=== PATIENT | female | born 1950 | race Caucasian/White ===

== ENCOUNTER 2017-11-16 23:28 | Emergency (ER) | payer BC | END 2017-11-16 23:40 | disposition left against medical advice (07) | LOC: ER 23:28 | DX: Z53.20 Procedure and treatment not carried out because of patient's decision for unspecified reasons (principal) ==

== ENCOUNTER 2018-05-04 18:15 | Emergency (ER) | payer BC | END 2018-05-04 19:39 | disposition home or self-care (01) | LOC: EDSEX → ER 18:15 | DX: Z53.9 Procedure and treatment not carried out, unspecified reason (principal) ==

== ENCOUNTER 2018-05-04 19:30 | Emergency (ER) | payer MEDICARE, MEDICAID ==
[2018-05-04] MEDS: METHYLPREDNISOLONE PF 125MG/VIAL IM ONE (20:16)
[2018-05-04] MEDS: HYDROCODONE/APAP 10/325 TABLET PO ONE (20:19)
--- NOTE | 2018-05-04 20:21 | Emergency Department Record ---
History of Present Illness - General Chief Complaint: Back Pain/Injury Stated Complaint: BACK/LEG/HIP PAIN Time Seen by Provider: 05/04/18 20:05 Source: Patient Mode of Arrival: Ambulatory Limitations: No limitations - History of Present Illness Initial Comments: pt has pain for weeks in both hips, both legs, lower back. he had an mri 2 days ago that has not been transcribed yet. he is set up to go to an legal contracts specialist in a month, he has had bilateral dopplers with a nonocclusive clot in the r groin. he was started on eliquis. he had a bad rxn to a recent cta. MD Complaint: Back pain, Other Onset/Timin -: Week(s) Similar Symptoms Previously: No Place: Home Radiation: Buttocks, Left leg, Right leg Severity: Moderate Severity scale (1-10): 6 Quality: Aching Consistency: Constant Improves With: None Worsens With: Sitting upright Context: Unknown Associated Symptoms: Denies other symptoms - Related Data Allergies Allergy/AdvReac Type Severity Reaction Status Date / Time ibuprofen [From Advil] Allergy Intermediate GI upset, Verified 05/04/18 19:34 rash Iodinated Contrast- Oral and Allergy ANAPHYLAXIS Verified 05/04/18 19:34 IV Dye Penicillins Allergy unknown Verified 05/04/18 19:34 Travel Screening - Travel/Exposure Within Last 30 Days Have you traveled within the last 30 days?: No Review of Systems Reviewed: No additional complaints except as noted below Constitutional: Reports: As per HPI. Denies: Chills, Fever, Malaise, Night sweats, Weakness, Weight change Eyes: Reports: As per HPI. Denies: Eye discharge, Eye pain, Photophobia, Vision change ENT: Reports: As per HPI. Denies: Congestion, Dental pain, Ear pain, Epistaxis , Hearing loss, Throat pain Respiratory: Reports: As per HPI. Denies: Cough, Dyspnea, Hemoptysis, Stridor, Wheezes Cardiovascular: Reports: As per HPI. Denies: Arrhythmia, Chest pain, Dyspnea on exertion, Edema, Murmurs, Orthopnea, Palpitations, Paroxysmal nocturnal dyspnea, Rheumatic Fever, Syncope Endocrine: Reports: As per HPI. Denies: Fatigue, Heat or cold intolerance, Polydipsia, Polyuria Gastrointestinal: Reports: As per HPI. Denies: Abdominal pain, Constipation, Diarrhea, Hematemesis, Hematochezia, Melena, Nausea, Vomiting Genitourinary: Reports: As per HPI. Denies: Dysuria, Frequency, Hematuria, Incontinence, Retention, Testicular pain, Testicular mass, Urgency Musculoskeletal: Reports: As per HPI, Back pain. Denies: Arthralgia, Gout, Joint swelling, Myalgia, Neck pain Skin: Reports: As per HPI. Denies: Bruising, Change in color, Change in hair/ nails, Lesions, Pruritus, Rash Neurological: Reports: As per HPI. Denies: Abnormal gait, Confusion, Headache, Numbness, Paresthesias, Seizure, Tingling, Tremors, Vertigo, Weakness Psychiatric: Reports: As per HPI. Denies: Anxiety, Auditory hallucinations, Depression, Homicidal thoughts, Suicidal thoughts, Visual hallucinations Hematological/Lymphatic: Reports: As per HPI. Denies: Anemia, Blood Clots, Easy bleeding, Easy bruising, Swollen glands Past Medical History - SOCIAL HISTORY Smoking Status: Former smoker Alcohol Use: None Drug Use: None - RESPIRATORY Hx Respiratory Disorders: No - CARDIOVASCULAR Hx Cardio Disorders: Yes Hx Deep Vein Thrombosis: Yes Comment:: walking with cane r/t pain - NEURO Hx Neuro Disorders: No - GI Hx GI Disorders: Yes Hx Reflux: Yes - Hx Genitourinary Disorders: No - ENDOCRINE Hx Endocrine Disorders: No - MUSCULOSKELETAL Hx Musculoskeletal Disorders: Yes Hx Arthritis: Yes (back) Comment:: DJD - PSYCH Hx Psych Problems: No - HEMATOLOGY/ONCOLOGY Hx Hematology/Oncology Disorders: No Family Medical History Any Significant Family History?: Yes Hx HTN: Father, Mother Physical Exam - General General Appearance: Alert, Oriented x3, Cooperative, Mild distress - Head Head exam: Normal inspection - Eye Eye exam: Normal appearance, PERRL, EOMI Pupils: Normal accommodation - ENT ENT exam: Normal exam, Mucous membranes moist, Normal external ear exam, Normal orophraynx Ear exam: Normal external inspection. negative: External canal tenderness Nasal Exam: Normal inspection. negative: Discharge, Sinus tenderness Mouth exam: Normal external inspection, Tongue normal Teeth exam: Normal inspection. negative: Dental caries Throat exam: Normal inspection. negative: Tonsillar erythema, Tonsillar exudate - Neck Neck exam: Normal inspection, Full ROM. negative: Tenderness - Respiratory Respiratory exam: Normal lung sounds bilaterally. negative: Respiratory distress - Cardiovascular Cardiovascular Exam: Regular rate, Normal rhythm, Normal heart sounds - GI/Abdominal GI/Abdominal exam: Soft, Normal bowel sounds. negative: Tenderness - Rectal Rectal exam: Deferred - exam: Deferred - Extremities Extremities exam: Normal inspection, Full ROM, Normal capillary refill, Tenderness Image of Full Body: 1 - pain 2 - pain - Back Back exam: Reports: Normal inspection, Full ROM. Denies: Muscle spasm, Rash noted, Tenderness - Neurological Neurological exam: Alert, CN II-XII intact, Normal gait, Oriented X3 - Psychiatric Psychiatric exam: Normal affect, Normal mood - Skin Skin exam: Dry, Intact, Normal color, Warm Course Vital Signs 05/04/18 19:35 Temperature 97.9 F Pulse Rate 82 Respiratory 18 Rate Blood Pressure 154/92 Pulse Ox 99 Disposition Disposition: Discharge Clinical Impression: Piriformis syndrome of both sides Bursitis Qualifiers: Bursitis location: hip Hip bursitis location: unspecified Laterality: bilateral Qualified Code(s): M70.71 - Other bursitis of hip, right hip; M70.72 - Other bursitis of hip, left hip Disposition: Home, Self-Care Condition: (1) Good Instructions: Hip Bursitis (ED), Piriformis Syndrome (ED) Additional Instructions: follow up with family doctor and with orthopedic surgeon kendall. return sooner if worse. may take 1 1/2 norco every 8 hrs as needed Quality - Quality Measures Quality Measures: N/A - Blood Pressure Screening Does Patient Have Any of the Following: Active Dx of HTN Blood Pressure Classification: Hypertensive Reading Systolic Measurement: 154 Diastolic Measurement: 92 Screening for High Blood Pressure: Patient Exclusion, Hx of HTN [[id number]]
== END 2018-05-04 20:49 | disposition home or self-care (01) ==
LOC: ER 19:30 → MERGE 19:30 → ER 20:49
DX: G57.03 Lesion of sciatic nerve, bilateral lower limbs (principal); M54.5 Low back pain; M70.72 Other bursitis of hip, left hip; M70.71 Other bursitis of hip, right hip; Z87.891 Personal history of nicotine dependence; Z79.01 Long term (current) use of anticoagulants
CPT/HCPCS: 99283 ×2; 96372; J3490; J2930

== ENCOUNTER 2019-03-29 06:33 | Day surgery (SDC) | payer MEDICARE, MEDICAID ==
[~2019-03-29 06:33] MED LIST: ACETAMINOPHEN 1,000 MG/100 ML BTL IVPB ONE; CLINDAMYCIN 600MG/50ML PREMIX 600 MG/50 ML BAG IVPB ONE
[2019-03-29] MEDS ORDERED: FENTANYL PF 100MCG/2ML VIAL IV ONE (06:34)
[2019-03-29] MEDS ORDERED: PROPOFOL 10 MG/ML VIAL IV ONE (06:34)
[2019-03-29] MEDS ORDERED: ROPIVACAINE HCL (NAROPIN) /PF 5MG/ML 20ML VIAL IV ONE (06:34)
[2019-03-29] MEDS ORDERED: SEVOFLURANE 250 ML INH ONE (06:34)
[2019-03-29] MEDS ORDERED: ONDANSETRON HCL IV 4 MG/2 ML VIAL IVP ONE (06:34)
[2019-03-29] MEDS ORDERED: DEXAMETHASONE 4 MG/ML 1ML VIAL IVP ONE ×2 (06:34)
[2019-03-29] MEDS ORDERED: LIDOCAINE 2% MDV (20MG/ML) 20ML VIAL IV ONE (06:34)
[2019-03-29] MEDS ORDERED: MIDAZOLAM HCL 2MG/2ML VIAL IV ONE (06:34)
[2019-03-29 06:50] LABS: ABSOLUTE NEUTROPHIL COUNT 5.18; BASO % 0.3 % (0-6); EOS % 2.6 % (0-6); GRAN % 68.2 % (47-80); HEMATOCRIT 40.4 % (42.0-52.0); HEMOGLOBIN 13.6 gm/dl (14.0-18.0); LYMPH % 20.7 % (16-45); MEAN CELL VOLUME 94.2 fl (81-97); MEAN CORPUSCULAR HEMOGLOBIN 31.7 pg (27-33); MEAN CORPUSCULAR HGB CONC 33.7 g/dl (32-36); MEAN PLATELET VOLUME 10.4 fl (7.4-10.4); MONO % 8.2 % (0-9); PLATELET COUNT 185 K/uL (130-400); RED BLOOD COUNT 4.29 M/uL (4.40-5.70); RED CELL DISTRIBUTION WIDTH 12.9 % (11.5-14.5); WHITE BLOOD COUNT W/O DIFF 7.6 K/uL (4.2-12.2)
[2019-03-29 07:02] LABS: BLOOD UREA NITROGEN 18 mg/dL (8-23); CREATININE 1.1 mg/dL (0.7-1.2); EST GLOMERULAR FILTRATION RATE > 60 mL/min; GLUCOSE,RANDOM 138 mg/dL (74-109)
[2019-03-29] MEDS ORDERED: RINGERS SOLUTION,LACTATED 1,000 ML IV ONE (07:40)
[2019-03-29] MEDS ORDERED: BUPIVACAINE 0.25% W/EPI MPF 30ML VIAL SQ ONE (08:43)
[2019-03-29] MEDS ORDERED: HYDROCODONE/APAP 5/325MG TABLET PO ONE (09:34)
--- NOTE | 2019-03-29 14:20 | Operative Note ---
DATE OF SURGERY: 03/29/2019 SURGEON: Ji Benoit DO PREOPERATIVE DIAGNOSIS: Reducible right inguinal hernia. POSTOPERATIVE DIAGNOSIS: Reducible right inguinal hernia, indirect. OPERATION: Open right inguinal herniorrhaphy with mesh. PROCEDURE: The patient is a 68-year-old male who was brought to the operating room and placed in a supine position. General anesthesia was administered per the department of anesthesia. The patient's right inguinal region was shaved of hair and prepped and draped in a sterile fashion. Adequate timeout was performed. He did receive preoperative block per the department of anesthesia. He also received preoperative antibiotics. At this time, the oblique region was anesthetized with a total of 3 mL of 0.25% Sensorcaine with epinephrine. A 4 cm oblique incision was made. This was carried down through the subcutaneous tissue to the aponeurosis of the external oblique. This was cleaned off. A dede was made with a scalpel blade and enlarged through the superficial inguinal ring with Metzenbaum scissors. Care was taken not to injure the underlying ilioinguinal nerve or spermatic cord. At this time, superior and inferior flaps were developed and a Ladd was placed on the spermatic cord. This was dissected free from the underlying transversalis fascia. This was retracted laterally with a Marshall drain. Floor was inspected and noted to be free of any direct herniation. At this time, cremasteric fibers were taken down. There was a large size indirect hernia sac containing omentum. This was reduced. High ligation of the sac was done. At this time, a right-sided ProGrip mesh was obtained. This was placed covering the floor of the inguinal canal with excellent overlap of the pubic tubercle. This was pre-notched to accompany the spermatic cord. At this time, this was sutured in place at the level of pubic tubercle, the second portion of the inguinal ligament, and the internal oblique aponeurosis. At this time, the external oblique aponeurosis was closed over the cord with 2-0 Vicryl, the Karly layer was closed with 3-0 Vicryl, and skin was closed with 4-0 Vicryl. The patient was taken to the recovery room in stable condition. FINDINGS ON SURGERY: Right inguinal hernia, indirect, repaired as above. MTDD
== END 2019-03-29 10:15 | disposition home or self-care (01) ==
LOC: SUR 06:33
PROVIDERS: ATTEND Surgery
DX: K40.90 Unilateral inguinal hernia, without obstruction or gangrene, not specified as recurrent (principal); I10 Essential (primary) hypertension; M19.90 Unspecified osteoarthritis, unspecified site; E78.00 Pure hypercholesterolemia, unspecified; F17.210 Nicotine dependence, cigarettes, uncomplicated; Z86.718 Personal history of other venous thrombosis and embolism
CPT/HCPCS: 49505; 00830; 64425; 85025; 80048; 76942; J2405; J3010; J2795; J7120